=== PATIENT | male | born 1985 | race Caucasian/White ===

== ENCOUNTER 2018-05-08 07:23 | Emergency (ER) | payer SELFPAY ==
[2018-05-08] MEDS ORDERED: Ibuprofen 800 MG TAB ONE (07:51)
[2018-05-08] MEDS ORDERED: Acetaminophen 500 MG TAB ONE (07:51)
[2018-05-08] MEDS ORDERED: Dexamethasone 4 mg/ml Vial ONE (08:10)
[2018-05-08] MEDS ORDERED: Bicillin LA 1.2 MILLION UNITS/2 ML SYRINGE ONE (08:10)
[2018-05-08] MEDS ORDERED: Dexamethasone 4 MG TAB ONE (08:12)
== END 2018-05-08 08:28 | disposition home or self-care (01) ==
LOC: BURERS 07:23
DX: J02.0 Streptococcal pharyngitis (principal); I10 Essential (primary) hypertension; R11.2 Nausea with vomiting, unspecified
CPT/HCPCS: 87430; 87804; 96372; J0561; J1100; J8540

== ENCOUNTER 2019-02-28 07:38 | Emergency (ER) | payer SELFPAY ==
[2019-02-28 08:34] LABS: #Basophils 0.1 thou/uL (0.0-0.2); #Eosinphils 0.3 thou/uL (0.0-0.7); #Lymphocytes 2.4 thou/uL (1.20-3.40); #Monocytes 0.8 thou/uL (0.11-0.59); #Neutrophils 4.7 thou/uL (1.40-6.50); %Basophils 1.6 % (0.0-1.0); %Eosinophils 4.2 % (0.0-10.0); %Lymphocytes 29.1 % (21.0-51.0); %Monocytes 9.1 % (0.0-10.0); Hemoglobin 14.9 g/dL (14.0-18.0); Mean Corpuscular HGB CONC 33.7 g/dL (32.0-36.0); Mean Corpuscular Hemoglobin 31.2 pg (27.0-31.0); Mean Corpuscular Volume 92.7 fL (78.0-98.0); Mean Platelet Volume 7.7 fL (7.4-10.4); Platelet Count 224 thou/uL (130-400); RBC Distribution Width 11.8 % (11.5-14.5); Red Blood Cell (RBC) Count 4.75 mill/uL (4.70-6.10); White Blood Cell (WBC) Count 8.4 thou/uL (4.8-10.8)
[2019-02-28 08:51] LABS: ALT (SGPT) 44 U/L (8-55); AST (SGOT) 31 U/L (5-34); Albumin 3.8 g/dL (3.5-5.0); Alkaline Phosphatase 62 U/L (40-110); Anion Gap 12 mmol/L (10-20); BUN (Urea Nitrogen) 10 mg/dL (8.9-20.6); Bilirubin, Total 0.3 mg/dL (0.2-1.2); Calc. Creatinine Clearance 0 mL/min (70-130); Calcium 8.9 mg/dL (7.8-10.44); Carbon Dioxide 23 mmol/L (22-29); Chloride 109 mmol/L (98-107); Estimated GFR-MDRD Greater than 90; Globulin 2.8 g/dL (2.4-3.5); Glucose 97 mg/dL (70-105); Lipase 62 U/L (8-78); Potassium 4.3 mmol/L (3.5-5.1); Protein, Total 6.6 g/dL (6.0-8.3); Sodium 140 mmol/L (136-145)
--- NOTE | 2019-02-28 17:56 | CT ---
CT OF THE BRAIN WITHOUT CONTRAST: 02/28/19 The ventricles are normal in size with no shift. No intracranial mass, bleeding or sign of stroke wa s found. There is no edema. There is good larsen-white distinction. The calvarium appears normal and th e visible paranasal sinuses are clear. IMPRESSION: No acute intracranial finding. POS: HOME
--- NOTE | 2019-02-28 17:57 | RAD ---
PORTABLE CHEST: 02/28/19 An AP portable film at [id number] shows a normal sized heart and clear lungs. There is no sign of pneumonia or pleural effusion. The mediastinum appears normal and the trachea is midline. IMPRESSION: No acute finding. POS: HOME
== END 2019-02-28 09:50 | disposition home or self-care (01) ==
LOC: BURERS 07:38
DX: F41.1 Generalized anxiety disorder (principal); R07.89 Other chest pain; F32.9 Major depressive disorder, single episode, unspecified; F17.210 Nicotine dependence, cigarettes, uncomplicated; Z79.899 Other long term (current) drug therapy
CPT/HCPCS: 36415; 70450; 71045; 80053; 83690; 84484; 85025; 93005; 94760

== ENCOUNTER 2019-07-25 07:39 | Emergency (ER) | payer SELFPAY ==
[2019-07-25] MEDS ORDERED: Bicillin LA 1.2 MILLION UNITS/2 ML SYRINGE ONE (08:12)
[2019-07-25] MEDS ORDERED: Dexamethasone 4 MG TAB ONE (08:12)
== END 2019-07-25 08:19 | disposition home or self-care (01) ==
LOC: BURERS 07:39
DX: J03.90 Acute tonsillitis, unspecified (principal); F41.9 Anxiety disorder, unspecified; F32.9 Major depressive disorder, single episode, unspecified; F43.10 Post-traumatic stress disorder, unspecified; F17.210 Nicotine dependence, cigarettes, uncomplicated; Z79.899 Other long term (current) drug therapy
CPT/HCPCS: 96372; 99282; J0561; J8540

== ENCOUNTER 2022-05-15 10:28 | Emergency (ER) | payer SELFPAY ==
[2022-05-15 11:01] LABS: #Basophils 0.1 thou/uL (0.0-0.2); #Eosinphils 0.2 thou/uL (0.0-0.7); #Lymphocytes 2.1 thou/uL (1.20-3.40); #Monocytes 0.6 thou/uL (0.11-0.59); #Neutrophils 9.1 thou/uL (1.40-6.50); %Eosinophils 1.4 % (0.0-10.0); %Lymphocytes 17.6 % (21.0-51.0); %Monocytes 4.7 % (0.0-10.0); %Neutrophils 75.3 % (42.0-75.0); Hemoglobin 16.4 g/dL (14.0-18.0); Mean Corpuscular HGB CONC 35.2 g/dL (32.0-36.0); Mean Corpuscular Hemoglobin 32.8 pg (27.0-31.0); Platelet Count 271 10x3/uL (130-400); RBC Distribution Width 11.8 % (11.5-14.5); White Blood Cell (WBC) Count 12.1 10x3/uL (4.8-10.8)
[2022-05-15] MEDS ORDERED: Morphine 4 MG/ML VIAL ONE (11:05)
[2022-05-15] MEDS ORDERED: Ondansetron PF 4 MG/2 ML Vial ONE (11:05)
[2022-05-15 11:10] LABS: Bilirubin Negative (Negative); Blood, Urine Negative (Negative); Clarity Clear (Clear); Glucose, Urine (Dipstick) Negative (Negative); Ketone, Urine Negative (Negative); Leukocyte Negative (Negative); Nitrite Negative (Negative); Protein, Urine (Dipstick) Negative (Neg-Trace); Urobilinogen 0.2 mg/dL (Less than 2); pH, Urine 8.5 (5.0-9.0)
[2022-05-15 11:27] LABS: ALT (SGPT) 25 U/L (8-55); AST (SGOT) 21 U/L (5-34); Albumin 4.3 g/dL (3.5-5.0); Alkaline Phosphatase 60 U/L (40-110); Anion Gap 13 mmol/L (10-20); BUN (Urea Nitrogen) 15 mg/dL (8.9-20.6); Bilirubin, Total 0.3 mg/dL (0.2-1.2); Calc. Creatinine Clearance 0 mL/min (70-130); Calcium 9.3 mg/dL (7.8-10.44); Carbon Dioxide 24 mmol/L (22-29); Chloride 108 mmol/L (98-107); Estimated GFR 117; Globulin 2.8 g/dL (2.4-3.5); Glucose 101 mg/dL (70-105); Lipase 25 U/L (8-78); Potassium 4.2 mmol/L (3.5-5.1); Protein, Total 7.1 g/dL (6.0-8.3); Sodium 141 mmol/L (136-145)
[2022-05-15] MEDS ORDERED: cefTRIAXone\\ROCEPHIN 2 GM VIAL ONE (12:23)
[2022-05-15] MEDS ORDERED: Sodium Chloride 0.9% 100 ML ONE (12:24)
[2022-05-15] MEDS ORDERED: Iopamidol 370 76% 100 ML VIAL ONE (15:22)
== END 2022-05-15 13:15 | disposition short-term general hospital (02) ==
LOC: BURERS 10:28
DX: K81.0 Acute cholecystitis (principal); K21.9 Gastro-esophageal reflux disease without esophagitis; F17.210 Nicotine dependence, cigarettes, uncomplicated
CPT/HCPCS: 74177; 80053; 81003; 83605; 83690; 85025; 96365; 96375; J0696; J2270; J2405; J3490; Q9967

== ENCOUNTER 2022-10-20 05:28 | Emergency (ER) | payer SELFPAY ==
[2022-10-20] MEDS ORDERED: Ondansetron ODT 4 MG TAB ONE (06:10)
[2022-10-20] MEDS ORDERED: Dexamethasone 10 MG/ML VIAL ONE (06:10)
[2022-10-20] MEDS ORDERED: Bicillin LA 1.2 MILLION UNITS/2 ML SYRINGE ONE (06:10)
== END 2022-10-20 06:27 | disposition home or self-care (01) ==
LOC: BURERS 05:28
DX: J02.0 Streptococcal pharyngitis (principal); F17.210 Nicotine dependence, cigarettes, uncomplicated; R73.9 Hyperglycemia, unspecified
CPT/HCPCS: 96372; 99282; J0561; J1100; Q0162

== ENCOUNTER 2024-02-03 21:52 | Emergency (ER) | payer SELFPAY ==
[2024-02-03] MEDS ORDERED: Sulfameth/Trimethoprim DS 800-160mg TAB ONE (22:28)
== END 2024-02-03 22:36 | disposition home or self-care (01) ==
LOC: BURERS 21:52
DX: L03.115 Cellulitis of right lower limb (principal); F17.210 Nicotine dependence, cigarettes, uncomplicated
CPT/HCPCS: 99283